=== PATIENT | male | born 1950 | race Caucasian/White ===

== ENCOUNTER 2021-03-17 01:54 | Day surgery (SDC) | payer BC, SELFPAY ==
[2021-03-03 14:17] VITALS: BMI 23.8
[2021-03-17 09:31] VITALS: BP 118/75; PULSE 94; RESP 16; TEMP 36.6; O2SAT 100; BMI 22.6
[2021-03-17] MEDS: LACTATED RINGERS 1,000 ML 150 ML IV CONT (09:40)
--- NOTE | 2021-03-17 09:41 | P.PNAN_ITS ---
Anes - Initial Pre Proc Eval Procedure: Operation Date: 03/17/21 10:30 Proposed Procedures p Screening Colonoscopy - Jan Weber MD Date/Time: 03/17/21 09:41 Surgeon: Jan Weber MD Pre Op Diagnosis: neoplasm screening Patient Data Age: 71 Gender: M Height: 1.88 m Weight: 80.2 kg Last Vital Signs Temp 97.8 F 03/17/21 09:31 Pulse 94 03/17/21 09:31 Resp 16 03/17/21 09:31 BP 118/75 03/17/21 09:31 Pulse Ox 100 03/17/21 09:31 Allergies Allergy/AdvReac Type Severity Reaction Status Date / Time Penicillins Allergy Itching Verified 03/17/21 09:29 Home Medications Medication Instructions Recorded Confirmed Type allopurinol 300 mg PO DAILY 03/03/21 03/03/21 History amlodipine-benazepril 1 cap PO DAILY 03/03/21 03/03/21 History atorvastatin 20 mg PO DAILY 03/03/21 03/03/21 History etanercept [Enbrel] 50 mg SUBCUT WEEKLY 03/03/21 03/03/21 History nabumetone 750 mg PO EVERY OTHER DAY 03/03/21 03/03/21 History tamsulosin [Flomax] 0.4 mg PO DAILY 03/03/21 03/03/21 History Patient hx anesthesia problems: none Family hx anesthesia problems: none [facility] Past Medical History Medical History (Updated 03/17/21 @ 09:40 by Roman Lopez MD) Hyperlipidemia Hypertension Social History Social History Smoking status: Never smoker Alcohol intake: never Substance use: never Substance use type: does not use Living arrangements: alone Spiritual care concerns: No Anes - Eval Final PreProcedure Day of Procedure 03/17/21 09:41 Patient weight: normal Heart: regular rate and rhythm Lungs: clear to auscultation Airway: Mallampati scale class II Neurological: alert and oriented Last oral intake: >/= 8 hours ASA classification: II Emergent: no Anesthetic plan: proceed Anesthesia type and monitoring: general GIVS and standard monitoring Informed Consent: The patient's anesthetic plan and its attendant risks and benefits were discussed with the patient/family/POA. Questions were solicited and answers provided to the satisfaction of the patient/family/POA.
--- NOTE | 2021-03-17 09:51 | P.CONGI_ITS ---
Assessment and Plan Assessment and plan (1) Encounter for screening colonoscopy: Code(s): Z12.11 - Encounter for screening for malignant neoplasm of colon Status: Acute Assessment and Plan: Patient presents for screening colonoscopy. Further recommendations will be given after endoscopy. GI Consult Note Consult date/time: 03/17/21 09:51 HPI: Ryan Mac is a 71 year old male Presents for screening colonoscopy. His current weight appetite bowel movements are normal. He denies abdominal pain. He has had no bleeding. Family history is noncontributory. Patient reports previous colonoscopy was more than 10 years ago was unremarkable. a screening colonoscopy will be performed today. Review of Systems Review of Systems: All systems reviewed & are unremarkable except as noted in HPI and below PMFSH Past Medical History Medical History (Updated 03/17/21 @ 09:52 by Jan Weber MD) Hyperlipidemia Hypertension Social History Social History Smoking status: Never smoker Alcohol intake: never Substance use: never Substance use type: does not use Living arrangements: alone Spiritual care concerns: No Meds Home Medications and Allergies Home Medications Medication Instructions Recorded Confirmed Type allopurinol 300 mg PO DAILY 03/03/21 03/03/21 History amlodipine-benazepril 1 cap PO DAILY 03/03/21 03/03/21 History atorvastatin 20 mg PO DAILY 03/03/21 03/03/21 History etanercept [Enbrel] 50 mg SUBCUT WEEKLY 03/03/21 03/03/21 History nabumetone 750 mg PO EVERY OTHER DAY 03/03/21 03/03/21 History tamsulosin [Flomax] 0.4 mg PO DAILY 03/03/21 03/03/21 History Allergies Allergy/AdvReac Type Severity Reaction Status Date / Time Penicillins Allergy Itching Verified 03/17/21 09:29 Vital Signs Vital Signs - 24 hr 03/17/21 09:31 Temperature 97.8 F Pulse Rate 94 Respiratory Rate 16 Blood Pressure 118/75 Pulse Oximetry 100 Exam Narrative: Physical exam reveals patient be alert. Vital signs stable. HEENT exam is unremarkable. Patient is anicteric. Lungs are clear to auscultation and percussion. Heart is without murmur or extra sounds. Abdominal exam bowel sounds are present soft nontender with no hepatosplenomega ly. Digital external rectal exam is normal.
[2021-03-17 10:44] VITALS: BP 95/53; PULSE 67; RESP 16; O2SAT 96
[2021-03-17 10:54] VITALS: BP 108/66; PULSE 69; RESP 19; O2SAT 96
[2021-03-17 11:04] VITALS: BP 111/50; PULSE 57; RESP 19; O2SAT 99
== END 2021-03-17 11:20 | disposition home or self-care (01) ==
PROVIDERS: PCP Internal Medicine; Visit Provider Internal Medicine Gastroenterology
PROC: 0DJD8ZZ Inspection of Lower Intestinal Tract, Via Natural or Artificial Opening Endoscopic (ICD-10-PCS; CPT 45378; principal; 2021-03-17 10:30)
DX: Z12.11 Encounter for screening for malignant neoplasm of colon (principal); K64.8 Other hemorrhoids; I10 Essential (primary) hypertension; E78.5 Hyperlipidemia, unspecified
CPT/HCPCS: 45378; J2001; J2704; J7120

== ENCOUNTER 2024-02-11 15:15 | Outpatient (RCR) | payer MEDICARE, SELFPAY ==
--- NOTE | 2023-12-02 12:03 | OTOPEVAL1 ---
Assessment and note entered by Bernardo Kimball, NEGRO/[place], CHT Evaluation Information 12/02/23 Assessment Status Evaluation Diagnosis Pain in right shoulder and right elbow Subjective Information Patient is right hand dominant. 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 Reports the shoulder pain is more chronic and the elbow pain is more recent/ acute. He is active and likes to workout. He has been taking a break from lifting weights due to the pain. (R) shoulder pain is located posteriorly , particularly when the shoulder is moving into extension. 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 Distally, he describes the elbow pain as intermittently sharp at the lateral elbow. States he can sometimes feel some tingling in the dorsum of his thumb. No pain or discomfort at rest. The pain begins when he tries to lift something, such as a pitcher. Reported Pain Level Pain Score 0: Self Report Additional Pain Score Comments (R) shoulder - Patient reports no pain at rest. He reports pain can increase to 4-5/10 with lifting and particularly with palpation to the muscles on and around the shoulder blade. More dull, diffuse pain. (R) elbow - Patient reports no pain at rest. He reports pain can increase to 6/10 with lifting. More sharp. Assessment OT Clinical Summary Patient referred to OT with dx of right shoulder pain and right elbow pain that has been affecting ADLs and his workout routine. He presents with decreased shoulder mobility, strength, and flexibility as well as postural deviations and pain that may benefit from skilled therapy to facilitate improved posture, flexibility, and strength to reduce pain with use and exercise. Distally he presents with signs and symptoms of lateral epicondylitis which may benefit from use of modalities, manual therapy, and progressive therapeutic exercise to reduce pain and improve functional strength. Plan of Care Interventions Therapeutic Exercise,Manual Therapy,Hot Pack/Cold Pack,Ultrasound,Paraffin OT Services Indicated Yes Treatment Frequency and 1-2x/week for 10 visits Duration These treatments will address the objective and functional deficits as defined above. The patient will be advanced safely and appropriately in o
--- NOTE | 2023-12-02 12:03 | OPREHPOC ---
Outpatient Therapy Plan of Care This is a Multidisciplinary Plan of Care that may contain components documented by all disciplines (PT, OT, and ST.) OT Problem 1 OT Problem #1 Knowledge Deficit OT Goal 1 Goal 1. Patient to be independent with instructed materials. Target Visit 10 OT Problem 2 OT Problem #2 Pain OT Goal 1 Goal 1. Patient to report no shoulder pain with active ROM of the shoulder against gravity in to flexion and abduction. 2. Patient to report no pain in the right elbow with ADLs. Target Visit 10 OT Problem 3 OT Problem #3 Impaired Flexibility OT Goal 1 Goal 1. Patient to improve right shoulder flexibility as demonstrated by measuring symmetrically with shoulder internal rotation (reaching up the back). 2. Patient to improve right shoulder flexibility as demonstrated by being able to progress shoulder stretches on a foam roller. Target Visit 10 OT Problem 4 OT Problem #4 Impaired Strength OT Goal 1 Goal 1. Patient to progress wrist strengthening to 20 reps with 3 lb. free weight in all planes without pain. Target Visit 10
--- NOTE | 2024-01-31 09:26 | OTOPEVAL1 ---
Assessment and note entered by Bernardo Kimball, ANIVALR/[place], CHT Evaluation Information Assessment Status Progress Diagnosis Pain in right shoulder and right elbow Subjective Information Patient reporting some progress in the (R) shoulder. He states he feels more flexible and he is experiencing less pain when working out. 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 Patient also reporting progress in the (R) elbow. He states he is experiencing less pain and able to lift objects without sharp pain. He continues to experience a dull ache in the right elbow with gripping and lifting, however. Reported Pain Level Pain Score 0/10 at rest Additional Pain Score Comments (R) shoulder - Patient reporting reduced severity and frequency in his pain. At the start of care he was experiencing 4-5/10 pain with exercise. Today he reports 0-2/10 pain, depending on the exercise . He states he no longer grimaces in pain with the fly machine at the gym. (R) elbow - Patient reports he no longer has sharp elbow pain, now it's a dull ache. He reports no pain at rest. Pain increases to 1-2/10 with lifting a gallon of lemonade. This improved from 6 /10 sharp pain with lifting. Assessment OT Clinical Summary Patient referred to OT with dx of right shoulder pain and right elbow pain that has been affecting ADLs and his workout routine. He presents today with improved shoulder mobility, reduced pain, and improved strength. He continues to have areas of soreness with particular motions and exercises in the shoulder. The right elbow is also reducing in pain, however he continues to experience 2/10 pain with lateral epicondyle tests as well as pain with gripping. Continued skilled OT indicated to progress HEP, continued postural exercise, use of modalities and manual therapy, as well as gross strengthening to facilitate improved functional use of the right UE and reduced pain. Plan of Care Interventions Therapeutic Exercise,Manual Therapy,Hot Pack/Cold Pack,Ultrasound,Paraffin OT Services Indicated Yes Treatment Frequency and 0-1x/week for 2 visits Duration These treatments will address the objective and functional deficits as defined above. The patient will be advanced safely and appropriately in order fo
--- NOTE | 2024-01-31 09:26 | OPREHPOC ---
Outpatient Therapy Plan of Care This is a Multidisciplinary Plan of Care that may contain components documented by all disciplines (PT, OT, and ST.) OT Problem 1 OT Problem #1 Knowledge Deficit OT Goal 1 Goal 1. Patient to be independent with instructed materials. ---OT POC UPDATE 01/31/24--- 1. Met Target Visit 10 OT Problem 2 OT Problem #2 Pain OT Goal 1 Goal 1. Patient to report no shoulder pain with active ROM of the shoulder against gravity in to flexion and abduction. 2. Patient to report no pain in the right elbow with ADLs. ---OT POC UPDATE 01/31/24--- 1. Met 2. Progressing, not met, continue to treat elbow pain Target Visit 10 OT Problem 3 OT Problem #3 Impaired Flexibility OT Goal 1 Goal 1. Patient to improve right shoulder flexibility as demonstrated by measuring symmetrically with shoulder internal rotation (reaching up the back). 2. Patient to improve right shoulder flexibility as demonstrated by being able to progress shoulder stretches on a foam roller. ---OT POC UPDATE 01/31/24--- 1. Progressing from 8 in to 4 in discrepancy, continue 2. Progressing, continue Target Visit 10 OT Problem 4 OT Problem #4 Impaired Strength OT Goal 1 Goal 1. Patient to progress wrist strengthening to 20 reps with 3 lb. free weight in all planes without pain. ---OT POC UPDATE 01/31/24--- 1. Patient has progressed to 5 lb. free weight. New Strength Goals: 1. Patient to increase (R) [employer] strength by 5 lbs. 2. Patient to be able to complete (R) forearm rotation strengthening without pain. 3. Patient to be able to complete (R) Wrist flexion strengthening against gravity with 5 lb. weight without pain. Target Visit 10
== END 2024-02-24 16:07 | disposition still patient (30) ==
LOC: ANHHIOT 15:15
PROVIDERS: PCP Nurse Practitioner Family; Visit Provider Nurse Practitioner Family
DX: M25.521 Pain in right elbow (principal)
CPT/HCPCS: 97018; 97110; 97140; 97167

== ENCOUNTER 2024-03-09 07:35 | Outpatient (RCR) | payer MEDICARE, SELFPAY ==
--- NOTE | 2024-03-09 08:39 | OTOPDC ---
Assessment and note entered by Bernardo Kimball, ANIVALR/[place], CHT OT Discharge Summary 03/09/24 Diagnosis Pain in right shoulder and right elbow Subjective Information Patient reporting progress in the right shoulder. He states he continues to feel more flexible and is no longer feeling pain in the shoulder when working. He states his elbow limits his workouts, not the shoulder. He states he has progressed in the amount of weight and continues to slowly increase, but again is limited more by the elbow vs. shoulder. Patient also reporting his right elbow is back to where we started . He reports 0/10 at rest, 2/10 with active ROM, and 5/10 with lifting activities. He reports the pain is no longer sharp. Assessment OT Clinical Summary Patient referred to OT with dx of right shoulder pain and right elbow pain that has been affecting ADLs and his workout routine. He presents today with improved shoulder mobility, reduced pain, and improved strength. He continues to experience tightness and popping with some shoulder motions due to decreased flexibility and strength. The right elbow demonstrates a regression in the last month. Patient does admit that he has an active lifestyle and this has inhibited better progress on the elbow. Discussed today the benefits of a tennis elbow brace for heavier lifting tasks and for working out. Emphasized the importance of trying to ice the elbow daily, which he had gotten away from. At this time he wishes to continue his HEP on his own. Reviewed HEP and recommendations. He verbalized excellent understanding. No further skilled OT indicated at this time. Plan of Care OT Services Indicated No
== END 2024-06-07 23:59 | disposition home or self-care (01) ==
LOC: ANHHIOT 07:35
PROVIDERS: PCP Nurse Practitioner Family; Visit Provider Nurse Practitioner Family
DX: M25.521 Pain in right elbow (principal)
CPT/HCPCS: 97110